=== PATIENT | male | born 1990 | race Caucasian/White ===

== ENCOUNTER 2020-02-22 09:46 | Emergency (ER) | payer OTHER, SELFPAY ==
--- NOTE | 2020-02-22 09:44 | ECG_ITS ---
APPROVED REPORT Exam: Resting ECG HR:89 bpm ECG Measurements Heart Rate 89 AXES ME 134 P 67 QRSd 96 QRS 28 QT 358 T 49 QTc 435 Conclusion Normal sinus rhythm Normal ECG Electronically signed by : Micah Koch, 02/22/2020 14:45:09
[2020-02-22 09:47] VITALS: BP 138/77; PULSE 94; PULSE 99; RESP 18; TEMP 36.6; O2SAT 96; O2SAT 97; BMI 28.1
--- NOTE | 2020-02-22 09:50 | XR_ITS ---
PROCEDURE: XR CHEST 2V CLINICAL HISTORY: chest pain Right-sided chest pain COMPARISON: No exams were available for comparison FINDINGS: The cardiomediastinal silhouette and pulmonary vascularity are within normal limits. The lungs are clear without infiltrates, suspicious nodules, or pleural effusions. No acute bony abnormalities. IMPRESSION: No acute findings. Dictated by: Ernesto Stroud MD 02/22/2020 10:08 Ernesto Stroud MD in [place] 02/22/2020 10:08
--- NOTE | 2020-02-22 09:57 | PC.NURSE ---
Patient to xray.
[2020-02-22 10:09] LABS: Basophils # 0.1 K/mm3 (0-0.2); Basophils % 0.7 % (0.1-2.0); Eosinophils # 0.2 K/mm3 (0.0-0.4); Hematocrit 47.1 % (42.0-52.0); Hemoglobin 16.3 g/dL (14.1-18.0); Lymphocytes # 2.6 K/mm3 (0.7-4.5); Lymphocytes % 23.2 % (10-50); Mean Corpuscular HGB Conc 34.6 g/dL (31.8-35.4); Mean Corpuscular Hemoglobin 29.7 pg (27.0-31.2); Mean Corpuscular Volume 85.8 fl (80-94); Mean Platelet Volume 7.3 fl (7.4-10.4); Monocytes # 0.8 K/mm3 (0.1-1.0); Monocytes % 6.7 % (1.7-9.3); Neutrophils # 7.7 K/mm3 (1.8-7.8); Neutrophils % 67.4 % (37.0-80.0); Platelet Count 350 K/mm3 (142-424); Red Cell Distribution Width 13.7 % (11.5-17.5); White Blood Count 11.4 K/mm3 (4.8-10.8)
[2020-02-22 10:12] LABS: Chloride 104 mmol/L (98-107); Sodium 143 mmol/L (136-145)
[2020-02-22 10:15] LABS: Blood Urea Nitrogen 12 mg/dl (9-20); Calcium 9.8 mg/dl (8.4-10.2); Carbon Dioxide 27 mmol/L (22.0-30.0); Creatinine Clearance Estimated 128 mL/min (50-200); Estimated Glomerular Filt Rate 79 ml/min (>60); GFR (African American) 96 ML/MIN (>60); Glucose 83 mg/dl (74-100)
[2020-02-22 10:17] VITALS: BP 143/87; PULSE 92; RESP 18; TEMP 36.7; O2SAT 95
[2020-02-22 10:30] VITALS: BP 129/81; PULSE 85; RESP 18; O2SAT 97
--- NOTE | 2020-02-22 10:41 | HMH.EDCP ---
ED Disposition Clinical Impression: Costochondritis Disposition: Home, Self-Care Condition on Discharge: Good Instructions: DI for Atypical Chest Pain Prescriptions: Ibuprofen [Ibuprofen 800mg Tablet] 800 mg PO TIDP PRN #20 tab PRN Reason: Moderate Pain Transmission Status: Pending to [facility] #[id number] Referrals: PCP,No [Primary Care Provider] - Micah Castorena MD [Staff Physician] - - Critical Care Critical Care Time: No Attestation: On 02/22/20, the high probability of a clinically significant, sudden or life threatening deterioration of the following system(s) required my full and direct attention, intervention and personal management. The time I documented below is in addition to time spent performing reported procedures but includes the following listed in this critical care notation. Medical Decision Making - Medical Records Medical records reviewed: Yes: I reviewed the patient's medical records. - Blayne Inquiry Pt receiving controlled substance: No Vital Signs: 02/22/20 09:47 02/22/20 10:17 02/22/20 10:30 Temperature 97.9 F 98.0 F Temperature Source Oral Oral Pulse Rate [Radial] 94 H 92 H 85 Respiratory Rate 18 18 18 Blood Pressure [Right Arm] 138/77 143/87 H 129/81 Blood Pressure Mean [Right Arm] 97 105 97 Blood Pressure Source [Right Arm] Automatic Cuff Automatic Cuff Automatic Cuff Blood Pressure Position [Right Arm] Sitting Sitting Sitting 02 Sat by Pulse Oximetry 96 95 97 Oxygen Delivery Method Room Air Room Air Room Air 02/22/20 11:00 Temperature Temperature Source Pulse Rate [Radial] 92 H Respiratory Rate 20 Blood Pressure [Right Arm] 143/87 H Blood Pressure Mean [Right Arm] 105 Blood Pressure Source [Right Arm] Automatic Cuff Blood Pressure Position [Right Arm] Sitting 02 Sat by Pulse Oximetry 96 Oxygen Delivery Method Room Air - Lab Data Lab Results 02/22/20 09:55: WBC 11.4 H, RBC 5.50, Hgb 16.3, Hct 47.1, MCV 85.8, MCH 29.7, MCHC 34.6, RDW 13.7, Plt Count 350, MPV 7.3 L, Neut % (Auto) 67.4, Lymph % (Auto) 23.2, [place] % (Auto) 6.7, Eos % (Auto) 2.0, Baso % (Auto) 0.7, Neut # (Auto) 7.7, Lymph # (Auto) 2.6, [place] # (Auto) 0.8, Eos # (Auto) 0.2, Baso # (Auto) 0.1 02/22/20 09:55: Sodium 143, Potassium 4.0, Chloride 104, Carbon Dioxide 27, Anion Gap 16.0 H, BUN 12, Creatinine 1.10, Estimated Creat Clear 128, Estimated GFR 79, Est GFR ( Amer) 96, Glucose 83, Calcium 9.8, Troponin I < 0.01 02/22/20 09:55: NT-Pro-B Natriuret Pep < 11.1, Lipase 144 02/22/20 09:55: D-Dimer 0.49 Result diagrams: 02/22/20 09:55 02/22/20 09:55 Orders (Tests/Meds): ED MEDICATIONS Discontinued Medications Generic Name Dose Route Start Last Admin Trade Name Freq PRN Reason Stop Dose Admin Ketorolac Tromethamine 30 mg 02/22/20 10:44 02/22/20 10:59 Ketorolac 30mg/Ml Vial IM 02/22/20 10:45 30 mg ONCE ONE Administration ORDERS Category Date Time Status Troponin I Q3H Lab 02/22/20 13:00 Ordered Troponin I Q3H Lab 02/22/20 16:00 Ordered - ECG Data Tracing #1 Normal ventricular rate 89 bpm. MT interval of 134 ms. Normal QTC. Final interpretation is normal sinus rhythm, normal EKG. ECG initial impression date: 02/22/20 ECG initial impression time: 09:46 - Reevaluation(s) Time: 11:26 Reevaluation #1: On reevaluation, patient is pain-free. No EKG changes. Negative troponin, negative D-dimer. Patient is follow-up with PCP. Given strict return precautions. Verbalized understanding. Medical Decision Narrative: Is a 29-year-old male presenting with subacute chest discomfort. Patient is low risk for acute coronary syndrome based on heart score. PERC negative. Work-up will be initiated. Chest Pain HPI - General Chief Complaint: Chest Pain Stated Complaint: chest pain Time Seen by Provider: 02/22/20 09:55 Mode of Arrival: Ambulatory Limitations: No Limitations Description of Symptoms (Recalled from ER Triage Doc. by RN): Comp
[2020-02-22 10:43] LABS: Troponin I < 0.01 ng/ml (0.00-0.034)
[2020-02-22 11:00] VITALS: BP 143/87; PULSE 92; RESP 20; O2SAT 96
[2020-02-22 11:05] LABS: Lipase 144 U/L (23-300)
[2020-02-22 11:11] LABS: D-Dimer 0.49 ug/mL (0.15-8.0)
[2020-02-22 11:18] LABS: NT Pro Brain Natriuretic Pep. < 11.1 pg/mL (0-125)
[2020-02-22 11:26] VITALS: BP 144/70; PULSE 93; RESP 18; TEMP 36.6; O2SAT 97
== END 2020-02-22 11:29 | disposition home or self-care (01) ==
PROVIDERS: Emergency Provider Emergency Medicine
DX: M94.0 Chondrocostal junction syndrome [Tietze] (principal); Z88.1 Allergy status to other antibiotic agents
CPT/HCPCS: 71046; 80048; 83690; 83880; 84484; 85025; 85378; 93005; 96374; 99283

== ENCOUNTER → 2021-02-14 10:53 | Outpatient (CLI) | payer OTHER, SELFPAY | PROVIDERS: Visit Provider Nurse Practitioner | DX: Z20.822 Contact with and (suspected) exposure to COVID-19 (principal) | CPT/HCPCS: C9803; U0003; U0005 ==

== ENCOUNTER → 2021-04-24 10:32 | Outpatient (CLI) | payer OTHER, SELFPAY | PROVIDERS: Visit Provider Nurse Practitioner | DX: Z20.822 Contact with and (suspected) exposure to COVID-19 (principal) | CPT/HCPCS: C9803; U0003; U0005 ==

== ENCOUNTER 2021-08-15 21:34 | Emergency (ER) | payer OTHER, SELFPAY ==
[2021-08-15 21:36] VITALS: BP 144/73; PULSE 84; RESP 18; TEMP 36.7; O2SAT 98; BMI 27.8
--- NOTE | 2021-08-15 21:56 | CT_ITS ---
PROCEDURE INFORMATION: Exam: CT Maxillofacial Without Contrast Exam date and time: 08/15/2021 10:03 PM Age: 30 years old Clinical indication: Injury or trauma; Blunt trauma (contusions or hematomas); Injury details: Hit on chin by baseball. ; Additional info: Hit with baseball TECHNIQUE: Imaging protocol: Computed tomography images of the face without contrast. Radiation optimization: All CT scans at this facility use at least one of these dose optimization techniques: automated exposure control; mA and/or kV adjustment per patient size (includes targeted exams where dose is matched to clinical indication); or iterative reconstruction. COMPARISON: No relevant prior studies available. FINDINGS: Orbital cavities: Orbits are normal. Globes are unremarkable. Bones/joints: No acute fracture. Paranasal sinuses: Scattered mucosal thickening ethmoid air cells. No air-fluid levels. Soft tissues: Unremarkable. IMPRESSION: No acute findings.
--- NOTE | 2021-08-15 22:46 | HMH.EDGENADL ---
ED Disposition Clinical Impression: Facial contusion Qualifiers: Encounter type: initial encounter Qualified Code(s): S00.83XA - Contusion of other part of head, initial encounter Dental injury Qualifiers: Encounter type: initial encounter Qualified Code(s): S09.93XA - Unspecified injury of face, initial encounter Disposition: Home, Self-Care Condition on Discharge: Good Instructions: DI for Acute Pain -- Adult Additional Instructions: see pcp and dentist for follow up Referrals: Provider,Referral, MD [Primary Care Provider] - - Critical Care Critical Care Time: No Attestation: On 08/15/21, the high probability of a clinically significant, sudden or life threatening deterioration of the following system(s) required my full and direct attention, intervention and personal management. The time I documented below is in addition to time spent performing reported procedures but includes the following listed in this critical care notation. Medical Decision Making - Medical Records Medical records reviewed: Yes: I reviewed the patient's medical records. - Blayne Inquiry Pt receiving controlled substance: No Vital Signs: 08/15/21 21:36 Temperature 98.1 F Temperature Source Oral Pulse Rate [Right] 84 Respiratory Rate 18 Blood Pressure [Right Arm] 144/73 H Blood Pressure Mean [Right Arm] 96 02 Sat by Pulse Oximetry 98 - Lab Data Lab results reviewed: Yes: I reviewed the patient's lab results. - CT Data CT Scan: Other (facial) Time Received: 22:[address] Reviewed: Yes: I have viewed the radiologist's interpretation Preliminary Findings: No Fracture Seen Medical Decision Narrative: facial tenderness with no def fx but has dental injury will see his dentist General Adult HPI - General Chief complaint: PAIN Stated complaint: AO 08-15@2030 baseball hit left side jaw Time Seen by Provider: 08/15/21 22:46 Mode of Arrival: Ambulatory Source of Information: Patient, Medical Record Limitations: No Limitations Description of Symptoms (Recalled from ER Triage Doc. 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 I have reviewed the patient's past medical history: Yes ROS Obtained: Yes All systems reviewed & no additional complaints - Constitutional Constitutional: Denies fever(s) - Eyes Eyes: Denies change in vision - ENT Ears, Nose, Mouth, and Throat: Reports as per HPI, Reports facial pain, Denies sore throat - Cardiovascular Cardiovascular: Denies chest pain - Respiratory Respiratory: Denies cough - Gastrointestinal Gastrointestingal: Denies: abdominal pain - Genitourinary Male Genitourinary: Denies flank pain - Musculoskeletal Musculoskeletal: Denies joint pain - Integumentary/Breasts Skin/Breast: Denies rash - Neurologic Neurologic: Denies headache(s), Denies seizure-like activity Physical Exam - General General appearance: alert - Head Head exam: normocephalic - Eye Eye exam: Present: PERRL, EOMI - ENT ENT exam: Present: mucous membranes moist, other (tender lt mandible with tm -ok and no epistasis ) - Neck Neck exam: Present: full ROM - Respiratory Respiratory exam: Absent: respiratory distress - Cardiovascular Cardiovascular exam: Present: regular rate - Abdominal Exam Abdominal exam: Present: soft - Extremities Exam Extremities exam: Present: full ROM - Neurolog
[2021-08-15 22:58] VITALS: BP 142/70; PULSE 80; RESP 18; TEMP 36.7; O2SAT 98
== END 2021-08-15 23:06 | disposition home or self-care (01) ==
PROVIDERS: Emergency Provider Emergency Medicine
DX: S09.93XA Unspecified injury of face, initial encounter (principal); S00.83XA Contusion of other part of head, initial encounter; K03.81 Cracked tooth; W21.03XA Struck by baseball, initial encounter
CPT/HCPCS: 70486; 99284

== ENCOUNTER 2021-12-10 09:47 | Emergency (ER) | payer OTHER, SELFPAY ==
[2021-12-10 10:00] VITALS: BP 119/72; PULSE 74; RESP 18; TEMP 36.3; O2SAT 96; BMI 25.0
--- NOTE | 2021-12-10 10:06 | HMH.EDUTC ---
[facility] [place] Disposition Clinical Impression: Low back pain Qualifiers: Chronicity: acute Back pain laterality: bilateral Sciatica presence: with sciatica Sciatica laterality: sciatica laterality unspecified Qualified Code(s): M54.40 - Lumbago with sciatica, unspecified side Sciatica Qualifiers: Laterality: unspecified laterality Qualified Code(s): M54.30 - Sciatica, unspecified side Disposition: Home, Self-Care Condition on Discharge: Good Additional Instructions: Go home and rest. It would be best if you rested tomorrow too. No heavy lifting. No twisting. Take the oral medications as directed. The muscle relaxer (cyclobenzaprine--Flexeril) will make you drowsy, so don't drive or operate heavy machinery after taking it. Don't start the oral steroids (medrol dose pack) until tomorrow, since you had the shots in here today. Follow up with your regular doctor. GO TO THE ER FOR ANY WORSENING SYMPTOMS OR CONCERN, ESPECIALLY BOWEL OR BLADDER ISSUES, SADDLE AREA NUMBNESS, FEVER, ETC Prescriptions: Cyclobenzaprine HCl [Cyclobenzaprine 10mg Tab] 10 mg PO BIDP PRN #20 tab PRN Reason: Muscle Spasm Transmission Status: Received by [id number] methylPREDNISolone [Medrol] 4 mg PO DIRECTED 6 Days #21 packet Transmission Status: Received by [id number] Referrals: Provider,Referral, [Primary Care Provider] - Forms: Work/School Release Time of Disposition: 10:34 Medical Decision Making - Medical Records Medical records reviewed: No: I reviewed the patient's medical records. - Blayne Inquiry Pt receiving controlled substance: No Vital Signs: 12/10/21 10:00 12/10/21 10:36 Temperature 97.4 F L 97.4 F L Temperature Source Oral Pulse Rate 74 Pulse Rate [Right Brachial] 74 Respiratory Rate 18 18 Blood Pressure 119/72 Blood Pressure [Right Arm] 119/72 Blood Pressure Mean [Right Arm] 87 Blood Pressure Source [Right Arm] Automatic Cuff Blood Pressure Position [Right Arm] Sitting 02 Sat by Pulse Oximetry 96 Oxygen Delivery Method Room Air Orders (Tests/Meds): ED MEDICATIONS Discontinued Medications Generic Name Dose Route Start Last Admin Trade Name Freq PRN Reason Stop Dose Admin Ketorolac Tromethamine 60 mg 12/10/21 10:13 12/10/21 10:25 Ketorolac 60mg/2ml Vial IM 12/10/21 10:14 60 mg ONCE ONE Administration Methylprednisolone Sodium Succinate 125 mg 12/10/21 10:13 12/10/21 10:25 Methylprednisolone Sod Succ 125mg Vial IM 12/10/21 10:14 125 mg ONCE ONE Administration [facility] [place] HPI - General Stated complaint: sciatica pain Time Seen by Provider: 12/10/21 10:06 - History of Present Illness Provider Complaint: He c/o low back pain for the past 2 days. He denies any known injury, fall or mva. - Related Data Previous Rx's Medication Instructions Recorded Ibuprofen [Ibuprofen 800mg 800 mg PO TIDP PRN #20 tab 02/22/20 Tablet] Cyclobenzaprine HCl 10 mg PO BIDP PRN #20 tab 12/10/21 [Cyclobenzaprine 10mg Tab] methylPREDNISolone [Medrol] 4 mg PO DIRECTED 6 Days #21 12/10/21 packet Allergies Allergy/AdvReac Type Severity Reaction Status Date / Time cefaclor [From CECLOR] Allergy Intermediate Verified 02/22/20 10:57 vancomycin [VANCOMYCIN] Allergy Intermediate Verified 02/22/20 10:57 CEPHALOSPORINS Allergy Intermediate Uncoded 04/08/17 14:51 SHELLFISH (FOOD) Allergy Intermediate I-HIVES Uncoded 04/08/17 14:[address] [facility] History - Hepatitis A Screen Attestation statement:: This patient has been screened for Hepatitis A risk factors. I have reviewed the patient's past medical history: Yes - Social History Alcohol Intake: never Occupational Status: employed ROS Obtained: Yes All systems reviewed & no additional complaints - Constitutional Constitutional: Reports as per HPI - Eyes Eyes: Denies eye discharge - ENT Ears, Nose, Mouth, and Throat: Denies vertigo/dizziness - Musculoskeletal Musculoskeletal:
[2021-12-10 10:36] VITALS: BP 119/72; PULSE 74; RESP 18; TEMP 36.3; O2SAT 96
== END 2021-12-10 10:45 | disposition home or self-care (01) ==
PROVIDERS: Emergency Provider Nurse Practitioner Family
DX: M54.40 Lumbago with sciatica, unspecified side (principal)
CPT/HCPCS: 96372; 99212; 99213; G0463

== ENCOUNTER 2022-08-21 09:52 | Emergency (ER) | payer OTHER, SELFPAY ==
[2022-08-21 10:07] VITALS: BP 145/81; PULSE 90; RESP 15; O2SAT 98; BMI 25.1
--- NOTE | 2022-08-21 10:40 | EXP.UTC ---
Discharge Plan Prescriptions Prescriptions: No Action ibuprofen 800 MG tablet 800 mg PO TIDP PRN (Reason: Moderate Pain) Qty: 20 0RF cyclobenzaprine 10 MG tablet 10 mg PO BIDP PRN (Reason: Muscle Spasm) Qty: 20 0RF methylprednisolone 4 MG tablets,dose pack 4 mg PO DIRECTED 6 Days Qty: 21 0RF Referrals Follow up/Referrals: Provider,Referral, MD [Primary Care Provider] - See instructions Activity Restrictions/Add. Instructions Additional Instructions/Restrictions: Over the counter Preparation H may help with itching and pain Tucks pads may help to relieve discomfort Soaking in warm tub or sitz bath may help Follow up with your Family Doctor if no improvement or any worsening of symptoms Straight to ER if any life threatening symptoms or rectal bleeding Clinical Impressions Clinical Impression: Hemorrhoid Stand Alone Forms Stand Alone Forms: Work/School Release Instructions Patient Instructions: Hemorrhoids, DI for Hemorrhoids Discharge ED Provider: Yumi Rodriguez [facility] [place] H[place] General Stated complaint: possible hemroid Mode of Arrival: Ambulatory Time Seen by Provider: 08/21/22 10:40 Description of Symptoms (Recalled from Triage Doc. by RN): pt come sin with c/o possible hemorrhoid ongoing for a few days History of Present Illness Provider Complaint: Patient states that for the last couple of days he has been feeling a little itchy and weird there thinks he may have a hemorrhoid States that he had a bowel movement last night and noticed it had a little spot of blood on the tissue States that he noticed it was from the outside States that today it was feeling a little itchy and just wanted to get it checked States that he does a lot of heavy lifting at work not sure if that would have caused it Related Data Previous Rx's Medication Instructions Recorded ibuprofen 800 mg tablet 800 mg PO TIDP PRN Moderate Pain 02/22/20 #20 tabs cyclobenzaprine 10 mg tablet 10 mg PO BIDP PRN Muscle Spasm #20 12/10/21 tabs methylprednisolone 4 mg tablets in 4 mg PO DIRECTED 6 days #21 12/10/21 a dose pack packets Allergies Allergy/AdvReac Type Severity Reaction Status Date / Time cefaclor [From CECLOR] Allergy Intermediate Verified 02/22/20 10:57 vancomycin [VANCOMYCIN] Allergy Intermediate Verified 02/22/20 10:57 amoxicillin Allergy Verified 08/21/22 10:27 CEPHALOSPORINS Allergy Intermediate Uncoded 04/08/17 14:51 SHELLFISH (FOOD) Allergy Intermediate I-HIVES Uncoded 04/08/17 14:51 [facility] Disclaimer: The information contained in this section may have been updated after the patient was seen, as this information can be updated by other users. Social History Smoking Status: Never smoker alcohol intake: never current occupational status: employed Travel in the last 8 weeks: None ROS Obtained: Yes All systems reviewed & no additional complaints except as documented and Yes Systems reviewed as appropriate & no additional complaints except as documented ENT Ears, Nose, Mouth, and Throat: Reports system reviewed and no additional complaints, except as documented and Reports as per HPI Cardiovascular Cardiovascular: Reports system reviewed and no additional complaints, except as documented and Reports as per HPI Respiratory Respiratory: Reports system reviewed and no additional complaints, except as documented and Reports as per HPI Gastrointestinal Gastrointestingal: Reports system reviewed and no additional complaints, except as documented and as per HPI Genitourinary Male Genitourinary: Reports system reviewed and no additional complaints, except as documented and Reports as per HPI Comments: thinks he may have hemorrhoid Musculoskeletal Musculoskeletal: Reports system reviewed and no additional complaints, except as documented and Reports as per HPI Neurologic Neurologic: Reports system reviewed and no additional complaints, except as documented and Reports as per HPI Physical Exa
[2022-08-21 10:50] VITALS: BP 145/81; PULSE 90; RESP 16; TEMP 36.8
== END 2022-08-21 10:54 | disposition home or self-care (01) ==
PROVIDERS: Emergency Provider Nurse Practitioner
DX: K64.9 Unspecified hemorrhoids (principal)
CPT/HCPCS: 99212; 99213; G0463

== ENCOUNTER 2022-12-16 17:02 | Emergency (ER) | payer OTHER, SELFPAY ==
[2022-12-16 17:13] VITALS: BP 0/0; PULSE 0; RESP 0; TEMP -17.7; TEMP 0
== END 2022-12-16 17:14 | disposition left against medical advice (07) ==
LOC: UTC 17:05
PROVIDERS: Emergency Provider Nurse Practitioner Family
DX: Z53.21 Procedure and treatment not carried out due to patient leaving prior to being seen by health care provider (principal)